=== PATIENT | male | born 2000 | race Caucasian/White ===

== ENCOUNTER 2021-08-04 18:01 | Emergency (ER) | payer MEDICAID ==
[~2021-08-04] VITALS: Ht 172.7 cm; Wt 77.0 kg
[2021-08-04] MEDS ORDERED: KETOROLAC 60MG/2ML VIAL IM ONE (21:15)
[2021-08-04] MEDS ORDERED: IBUP-2029 MT (21:17)
[2021-08-04 21:23] VITALS: BP 154/73
== END 2021-08-04 22:23 | disposition home or self-care (01) ==
LOC: ER 18:01
DX: R07.89 Other chest pain (principal); Z20.822 Contact with and (suspected) exposure to COVID-19
CPT/HCPCS: 36415; 71045; 84484; 93005; 96372; 99285; C9803; J1885; U0003; U0005

== ENCOUNTER 2022-05-17 12:42 | Emergency (ER) | payer MEDICAID ==
[~2022-05-17] VITALS: Ht 167.6 cm; Wt 87.0 kg
[~2022-05-17 12:42] MED LIST: IBUP-2029 MT
[2022-05-17] MEDS ORDERED: ONDANSETRON HCL 4MG/2ML INJ IV ONE (14:30)
[2022-05-17] MEDS ORDERED: KETOROLAC 15MG/ML VIAL IV ONE (14:30)
[2022-05-17 14:35] VITALS: BP 151/84
[2022-05-17 14:52] LABS: BASOPHILS % 0.4 % (0.0-2.0); EOSINOPHILS % 0.5 % (0.0-5.0); HEMATOCRIT. 44.6 % (42.0-52.0); HEMOGLOBIN. 15.7 g/dL (14.0-18.0); LYMPHOCYTES % 11.8 % (20.0-50.0); MEAN CORPUSCULAR HEMOGLOBIN 31.2 pg (28.0-32.0); MEAN CORPUSCULAR VOLUME 88.9 fL (80.0-94.0); MEAN PLATELET VOLUME 9.7 fl (7.4-10.4); MONOCYTES % 6.6 % (2.0-8.0); NEUTROPHILS % 80.7 % (40.0-76.0); PLATELET 248 x1000/uL (130-400); RED BLOOD CELL COUNT 5.02 mill/uL (4.7-6.1); RED CELL DISTRIBUTION WIDTH 12.7 % (11.6-14.6)
[2022-05-17 15:02] LABS: CHLORIDE 105 mEq/L (98-107)
[2022-05-17 15:34] LABS: CLARITY URINE TURBID (CLEAR); COLOR URINE YELLOW (YELLOW); KETONES URINE TRACE (NEGATIVE); LEUKOCYTE ESTERASE URINE NEGATIVE (NEGATIVE); NITRITE URINE NEGATIVE (NEGATIVE); OCCULT BLOOD URINE 3+ (NEGATIVE); PROTEIN URINE 1+ (NEGATIVE); SPECIFIC GRAVITY URINE 1.027 (1.005-1.030)
[2022-05-17] MEDS ORDERED: TAMS-11 MT (16:39)
[2022-05-17] MEDS ORDERED: KETO10TA2 MT (16:39)
== END 2022-05-17 16:54 | disposition home or self-care (01) ==
LOC: ER 12:42
DX: N20.0 Calculus of kidney (principal); R03.0 Elevated blood-pressure reading, without diagnosis of hypertension
CPT/HCPCS: 36415; 76770; 80053; 81003; 85025; 96374; 96375; 99284; J1885; J2405